=== PATIENT | male | born 1985 | race Caucasian/White ===

== ENCOUNTER → 2020-08-24 18:11 | Outpatient (CLI) | payer BC, SELFPAY | PROVIDERS: PCP Family Medicine; Referring Provider Registered Nurse; Visit Provider Registered Nurse | DX: Z03.818 Encounter for observation for suspected exposure to other biological agents ruled out (principal); R09.81 Nasal congestion | CPT/HCPCS: 87635; C9803; U0003 ==

== ENCOUNTER 2020-09-30 09:29 | Observation (INO) | payer BC, SELFPAY ==
[2020-09-30] VITALS (10 sets, daily range): BP systolic 136–154; BP diastolic 81–103; PULSE 77–95; RESP 14–20; TEMP 36.6–37.3; O2SAT 96–100; BMI 35.9; BMI 35.5; BMI 35.6
--- NOTE | 2020-09-30 09:38 | EKG12_ITS ---
Test Reason : Blood Pressure : / mmHG Vent. Rate : 090 BPM Atrial Rate : 090 BPM P-R Int : 166 ms QRS Dur : 098 ms QT Int : 366 ms P-R-T Axes : 048 001 -04 degrees QTc Int : 447 ms Normal sinus rhythm Moderate voltage criteria for LVH, may be normal variant Nonspecific T wave abnormality Borderline ECG Confirmed by SHARON MARIE, VINCE ([id number]), non linear editor NORA LARSEN ([id number]) on 10/04/2020 9:47:32 AM Referred By: DORIS Confirmed By:VINCE HERRERA MD
--- NOTE | 2020-09-30 09:38 | RAD_ITS ---
STUDY: X-RAY CHEST REASON FOR EXAM: Male, 35 years old. CHEST PAIN, SOME SOB ON EXERTION TECHNIQUE: Single AP portable view of the chest. COMPARISON: None. FINDINGS: EKG electrodes are seen. The lungs are clear and expanded. There is no demonstrated pleural abnormality. Normal size heart. Normal mediastinum and la nena. Normal visualized pulmonary arteries. Normal visualized aortic arch and descending thoracic aorta. Normal visualized thoracic spine. Normal visualized ribs, clavicles, and shoulders. There is no demonstrated abnormality of the visualized soft tissue structures of the upper abdomen. RAD/Chest 1 View (Portable) IMPRESSION: Normal x-ray examination of the chest. Electronically Signed: Rd Baker, at 10:33 EST , Service support ,
--- NOTE | 2020-09-30 09:39 | ED.DCSUM_ITS ---
History of Present Illness Chief Complaint: Chest Pain Informant: Patient Narrative: 35-year-old male with no significant past medical history presents with concern for chest pain. States is been present over the past 3 weeks. States it is been intermittent in nature. Describes it as sharp and retrosternal. Not elicited by exertion. Patient states that however he was at work today when he lifted a box and became very dizzy he developed chest pain and had shortness of breath. Denies any nausea or diaphoresis. Patient did just recently fly to [place] 11 days ago. Denies any lower extremity pain or edema. Denies any history of DVT or pulmonary embolism. Is not a current smoker. States that he has had elevated cholesterol and has been working on weight loss rather than medication. Denies any sick contacts. Denies any fever, chills, cough. Past Medical History - Allergies and Home Meds Allergies/Adverse Reactions: Allergies No Known Allergies Allergy (Verified 09/30/20 09:58) Primary Care Physician: Ravi Stout MD [Primary Care Provider] - Prior records reviewed: Yes Past Medical History: None Surgical History: - - gynecomastia surgery Lives: Spouse/ Significant Other Smoking Status: Never smoker Alcohol: Occasional Drugs: None Review of Systems General: Denies: Chills, Fever, Sweats Eyes: Denies: Visual changes - bilaterally, Diplopia ENT: Denies: Rhinorrhea, Sore throat Cardiovascular: Reports: Chest pain. Denies: Palpitations Respiratory: Reports: Dyspnea. Denies: Cough, Dyspnea on exertion Gastrointestinal: Denies: Abdominal pain, Nausea, Vomiting, Diarrhea, Melena, Hematochezia Genitourinary: Denies: Dysuria, Hematuria, Frequency Musculoskeletal: Denies: Back pain, Extremity Pain Skin: Denies: Rash, Wounds Neurological: Denies: Headache, Weakness, Numbness Physical Exam Vital Signs/Narrative: Vital Signs Temp Pulse Resp BP Pulse Ox 09/30/20 09:31 98.2 F 89 20 H 150/101 H 98 Inital Vital Signs reviewed: Yes General: Well nourished, Well developed, No Acute Distress Head: Normocephalic, Atraumatic Eyes: Perrl, EOMI ENT: Moist mucous membranes, No rhinorrhea Neck: Supple, Nontender Cardiovascular: Regular rate, Regular rhythm, No murmurs Respiratory: No distress, CTA bilaterally, Chest nontender Abdomen: Soft, Nontender, Nondistended, Normal bowel sounds Back: Nontender, Normal Inspection Extremities: Nontender, No edema. Negative for: Calf Tenderness Skin: Normal color, No rash Neurological: Alert, Oriented x3, Cranial nerves II-XII grossly intact, Normal Strength, Normal Sensation Psychological: Normal affect, Normal Mood Diagnostic/Tx/Re-eval Chest X-Ray - ED: 1 View, Read by ED Physician, Read by Radiologist Clinical Impression(s) from Imaging Studies Chest X-Ray 09/30/20 09:38 IMPRESSION: Normal x-ray examination of the chest. Electronically Signed: Rd Baker, at 10:33 EST , Service support , Laboratory Data 09/30/20 09/30/20 09/30/20 09:48 09:48 09:48 WBC 4.9 RBC 4.77 Hgb 15.3 Hct 43.4 MCV 91.0 MCH 32.1 H MCHC 35.3 RDW Std Deviation 41.3 RDW Coeff of Monalisa 12.4 Plt Count 186 MPV 10.2 Immature Gran % (Auto) 0.200 Neut % (Auto) 54.2 Lymph % (Auto) 31.8 Mcmullen % (Auto) 10.8 H Eos % (Auto) 2.0 Baso % (Auto) 1.0 Absolute Neuts (auto) 2.7 Absolute Lymphs (auto) 1.56 Nucleated RBC % 0 D-Dimer Quant (PE/DVT) 0.29 Sodium 138 Potassium 3.8 Chloride 108 H Carbon Dioxide 24.0 Anion Gap 6 BUN 11 Creatinine 1.04 Estim Creat Clear Calc 109.85 Est GFR (MDRD) Af Amer 105 Est GFR (MDRD) Non-Af 87 BUN/Creatinine Ratio 10.6 Glucose 90 Calcium 8.5 Troponin I < 0.015 - Rhythm Strip Rhythm Strip: Sinus Rhythm Rate: 90 Ectopy: None - EKG Initial EKG Interpretation: Sinus Rhythm - Sinus rhythm at 90 bpm. NM interval of 166 ms. QTC of 447 ms. T wave inversion in lead III and aVF. No evidence of ST elevation. LVH. - Medical Decision Making Appears well and nontoxic. Hypertensive upon arrival. D-dimer negative. Troponin negative. EKG shows T wave inversions in inferior leads without comparison. Spoke with box spring frame builder on-call, Dr. Mirza, who suggested admission given the patient's significantly elevated lipids as an outpatient. Patient will receive stress testing during his hospital stay. Patient received aspirin. Patient admitted in stable condition after discussion with hospitalist. 1. Chest pain 2. Hyperlipidemia ED Disposition - Plan for ED Patient: Referrals: Ravi Stout MD [Primary Care Provider] -
[2020-09-30 09:58] LABS: Absolute Lymphocyte Count 1.56 X10^3/uL (0.83-4.51); Absolute Neutrophil Count 2.7 X10^3/uL (2.0-7.7); Basophil# 0.05 X10^3/uL; Hematocrit 43.4 % (40-54); Hemoglobin 15.3 g/dL (13.0-16.5); Lymphocyte # 1.56 X10^3/ul (4.0); Lymphocyte % 31.8 % (19-41); Mean Corp Hgb Conc 35.3 g/dL (32-36); Mean Corpuscular Hgb 32.1 pg (27.0-32.0); Mean Platelet Vol. 10.2 fl (6.2-12.0); Monocyte# 0.53 X10^3/uL; Monocyte% 10.8 % (0-10); NRBC Flagged by Analyzer 0 % (0-5); Neutrophil # 2.65 X10^3/uL (2.7-7.7); Neutrophil % 54.2 % (47-70); Platelet Count 186 K/mm3 (150-450); RBC Distribution Width CV 12.4 % (11.6-14.6); RBC Distribution Width SD 41.3 fl (35.1-43.9); Red Blood Count 4.77 M/mm3 (4.6-6.2); White Blood Count 4.9 K/mm3 (4.4-11.0)
[2020-09-30 10:12] LABS: D-Dimer Quantitative (DVT/PE) 0.29 FEU/ug/m (0.27-0.49)
[2020-09-30 10:15] LABS: Anion Gap 6 (5-15); BUN 11 mg/dL (7-18); BUN/Creat Ratio 10.6 RATIO (10-20); Calcium,Total 8.5 mg/dL (8.5-10.1); Chloride 108 mmol/L (98-107); Creatinine, Serum 1.04 mg/dL (0.70-1.30); EST Glomerular Filtration Rate 87 mL/min (>60); Est Glom Filt Rate - Afr Amer 105 mL/min (>60); Estimated Creatinine Clearance 109.85 ml/min; Glucose 90 mg/dL (74-106); Potassium 3.8 mmol/L (3.5-5.1); Sodium Level 138 mmol/L (136-145)
[2020-09-30] MEDS: Aspirin 325 MG Tablet PO (10:31)
--- NOTE | 2020-09-30 11:10 | EKG12_ITS ---
Test Reason : CP ADMIT Blood Pressure : / mmHG Vent. Rate : 075 BPM Atrial Rate : 075 BPM P-R Int : 170 ms QRS Dur : 098 ms QT Int : 384 ms P-R-T Axes : 021 -02 -11 degrees QTc Int : 428 ms Normal sinus rhythm Normal ECG Confirmed by SHARON MARIE, VINCE ([id number]), distribution associate NORA LARSEN ([id number]) on 10/04/2020 10:03:00 AM Referred By: BLADE Confirmed By:VINCE HERRERA MD
--- NOTE | 2020-09-30 11:26 | PCM.CONS.C ---
Problem List (1) Chest pain Status: Acute Reason for Consult Date of Consultation: 09/30/20 History of Present Illness: The patient is a 35 year old M has been having left-sided pressure for 3 weeks. It could last for hours with or without exertion. It usually did not involve dizziness or shortness of breath. However, he has been feeling more tired than usual. In the good day, patient can do anything he wants to do with no difficulty. He is still working full-time ambulating with no difficulty. Today at work, patient was lifting something and developed similar chest tightness with dizziness this time. He was concerned and was seen emergency room. Is known to have hyperlipidemia on diet control. He is a non-smoker, no use of recreational drug. He drinks occasionally. There has been no family history of early myocardial infarct. First sets of EKG showed normal sinus rhythm with nonspecific ST-T wave changes. First set of enzymes was normal [] Past Medical History Allergies/Adverse Reactions: Allergies No Known Allergies Allergy (Verified 09/30/20 09:58) Home Medications: Ambulatory Orders Medication Instructions Recorded Citalopram [Celexa] 20 mg PO BID 09/30/20 Surgical History: no surgical history, - - gynecomastia surgery Psychiatric History: No pertinent psych hx Lives: Spouse/ Significant Other Smoking Status: Never smoker Tobacco Use: Non-smoker Alcohol: Occasional Drugs: None Review of Systems - Review of Systems General: Denies: Fever, Night Sweats, Fatigue Cardiovascular: Reports: Chest Discomfort Respiratory: Denies: Cough, Sputum Production, Hemoptysis Gastrointestinal: Denies: Hematemesis, Hematochezia, Melena Genitourinary: Denies: Dysuria, Hematuria Muscoloskeletal: Denies: Muscle Weakness, Joint Swelling, Neck Pain, Back Pain Skin: Denies: Rash Neurological: Reports: Dizziness Psychiatric: Denies: Anxiety, Depression Objective: Vital Signs Temp Pulse Resp BP Pulse Ox 98.2 F 80 20 H 154/103 H 96 09/30/20 10:49 09/30/20 10:49 09/30/20 10:49 09/30/20 10:49 09/30/20 10:49 Oxygen Delivery Method Room Air Weight: 264 lb 12.403 oz Body Mass Index (BMI) 35.9 General: Awake, Alert, Oriented x 3 HEENT: PERRL, EOMI, Sclera Non Icteric Neck: Supple Lungs: Clear to auscultation Cardiovascular: Regular Rhythm, Normal S1, Normal S2, No Murmurs, No Rubs, No Gallops Vascular: No Carotid Bruits, Normal Femoral Pulses, Normal Radial Pulses, Normal Dorsalis Pedal Pulse, Normal Posterior Tibial Pulses Abdomen: Bowel Sounds Present, Soft, Non Tender, No HSM, No Organomegaly Extremities: No Cyanosis, No Clubbing, No edema Neurological: No Focal Motor or Sensory Deficit Psych/Mental Status: Appropriate, Normal Affect 09/30/20 09:48: WBC 4.9, RBC 4.77, Hgb 15.3, Hct 43.4, MCV 91.0, MCH 32.1 H, MCHC 35.3, Plt Count 186, MPV 10.2, Immature Gran % (Auto) 0.200, Neut % (Auto) 54.2, Lymph % (Auto) 31.8, Preble % (Auto) 10.8 H, Eos % (Auto) 2.0, Baso % (Auto) 1.0, Absolute Neuts (auto) 2.7, Nucleated RBC % 0 09/30/20 09:48: D-Dimer Quant (PE/DVT) 0.29 09/30/20 09:48: Sodium 138, Potassium 3.8, Chloride 108 H, Carbon Dioxide 24.0, Anion Gap 6, BUN 11, Creatinine 1.04, Est GFR (MDRD) Af Amer 105, Est GFR (MDRD) Non-Af 87, BUN/Creatinine Ratio 10.6, Glucose 90, Calcium 8.5, Troponin I < 0.015 Rhythm: EKG: ECHO: Stress Test: Cardiac Cath: PCI: CT Surgery: Holter monitor: EPS: PPM: CXR: Chest CT Scan: Assessment/Plan Mostly atypical chest pain for 3 weeks. First sets of EKG was basically normal with nonspecific ST-T wave changes. First set of enzymes was normal. Patient has had history of hyperlipidemia. I will proceed with nuclear stress test tomorrow.
--- NOTE | 2020-09-30 11:35 | HP.PCM_ITS ---
Problem List (1) Misophonia Status: Chronic (2) Hyperlipidemia Status: Chronic (3) Chest pain Status: Acute History of Present Illness Date of Admission: 09/30/20 Chief Complaint: Chest pain. The patient is a 35 year old M with past medical history as mentioned above presented to the emergency room because of chest pain. His symptoms started around 3 weeks ago with chest pain, retrosternal, sometimes goes to the left side, pressure-like pain, sometimes sharp, radiates to the left neck and left shoulder, associated with shortness of breath and dizziness and without aggravating or relieving factors. He reported no factors that bring the pain on like activity or rest. He mentioned that the pain has been almost constant through the 3 weeks but today at work, it got worse, was dizzy, sweaty and short of breath and he decided to come to the ER. In the emergency department, blood pressure was slight elevated, other vitals were stable. Routine blood work was unremarkable. EKG revealed normal sinus rhythm without evidence of acute ischemic changes. Troponin was negative. D-dimer was normal. Chest x-ray showed no acute findings. He is being admitted for chest pain for evaluation. Past Medical History Past Medical History (Chronic Problems): Chronic Problems Misophonia (Chronic) Hyperlipidemia (Chronic) Allergies No Known Allergies Allergy (Verified 09/30/20 09:58) Home Medications: Ambulatory Orders Medication Instructions Recorded Citalopram [Celexa] 20 mg PO BID 09/30/20 Surgical History: no surgical history, - - gynecomastia surgery Psychiatric History: No pertinent psych hx Lives: Spouse/ Significant Other Smoking Status: Never smoker Tobacco Use: Non-smoker Alcohol: Occasional Drugs: None - *Family History Maternal History Items: No pertinent history, - - No first-degree family history of premature CAD, hypertension or diabetes. Paternal History Items: No pertinent history Review of Systems Constitutional: Denies: Anorexia, Chills, Fever, Weakness Eyes: Denies: Blurred vision, Double vision, Drainage, Redness HEENT: Denies: Difficulty Hearing, Ear Pain, Eye Pain, Nasal Congestion, Sore Throat Cardiovascular: Reports: Chest Pain, Chest Pressure, Light Headedness. Denies: Edema, Heaviness, Palpitations, Paroxysmal Noc. Dyspnea, Syncope Respiratory: Reports: Shortness of Breath. Denies: Cough, Hemoptysis, Pleuritic Pain, Sputum production, Wheezing Gastrointestinal: Denies: Abdominal Pain, Constipation, Nausea, Vomiting Genitourinary: Denies: Dysuria, Frequency, Hematuria Musculoskeletal: Denies: Arm Pain, Back Pain, Foot Pain Skin: Denies: Dryness, Rash Neurological: Denies: Balance problems, Blurred vision, Double vision, Change in Speech, Slurred speech, Confusion, Headaches, Incoordination Psychiatric: Denies: Anxiety, Depression Endocrine: Denies: Change in Body Habitus, Polydipsia, Polyuria VTE Information - Inpt Only VTE Present on Admission: No VTE Mechan Device Prophylaxis: None VTE Pharm Prophylaxis ordered?: No Patient Problems: Active and Suspected Problems Chest pain (Acute) - Physical Exam Vitals/I&O's: Vital Signs Temp Pulse Resp BP Pulse Ox 98.2 F 80 20 H 154/103 H 96 09/30/20 10:49 09/30/20 10:49 09/30/20 10:49 09/30/20 10:49 09/30/20 10:49 Oxygen Delivery Method Room Air Weight: 264 lb 12.403 oz Body Mass Index (BMI) 35.9 General: Alert, Oriented x3, Cooperative, No apparent distress HEENT: Atraumatic, PERRLA, EOMI, Normocephalic Oral: Moist Mucosa, No Gingival or Mucosal Lesions/ Ulcerations Neck: Supple, No JVD, Negative Carotid Bruits, Trachea Midline, Thyroid Normal Size and Texture Lungs: Clear to auscultation, Normal air movement, No rhonchi, No wheeze, No rales Cardiovascular: Regular rate, Regular Rhythm, Normal S1, Normal S2, PMI Normal Abdomen: Bowel Sounds Present, Soft, Non Tender, Non-Distended, No Hepato- splenomegaly, Obese Extremities: No clubbing, No cyanosis, No edema Skin: No rashes, No breakdown Lymphatic: No Cervical, Supraclavicular, or Inguinal Adenopathy Neurological: Cranial nerves II-XII grossly intact, Motor Exam 5/5 strength throughout Psych/Mental Status: Normal Affect, Appropriate, Alert and oriented to time, place, person, mood and affect Laboratory Results 09/30/20 09:48: WBC 4.9, RBC 4.77, Hgb 15.3, Hct 43.4, MCV 91.0, MCH 32.1 H, MCHC 35.3, RDW Std Deviation 41.3, RDW Coeff of Monalisa 12.4, Plt Count 186, MPV 10.2, Immature Gran % (Auto) 0.200, Neut % (Auto) 54.2, Lymph % (Auto) 31.8, Robeson % (Auto) 10.8 H, Eos % (Auto) 2.0, Baso % (Auto) 1.0, Absolute Neuts (auto) 2.7, Absolute Lymphs (auto) 1.56, Nucleated RBC % 0 09/30/20 09:48: D-Dimer Quant (PE/DVT) 0.29 09/30/20 09:48: Sodium 138, Potassium 3.8, Chloride 108 H, Carbon Dioxide 24.0, Anion Gap 6, BUN 11, Creatinine 1.04, Estim Creat Clear Calc 109.85, Est GFR (MDRD) Af Amer 105, Est GFR (MDRD) Non-Af 87, BUN/Creatinine Ratio 10.6, Glucose 90, Calcium 8.5, Troponin I < 0.015 Clinical Impression(s) from Imaging Studies Chest X-Ray 09/30/20 09:38 IMPRESSION: Normal x-ray examination of the chest. Electronically Signed: Rd Baker, at 10:33 EST , Service support , Current Medications Acetaminophen (Acetaminophen 325 Mg Tablet) 650 mg PO Q6H PRN PRN PRN Reason: Pain Score 1-10/Temp > 100.7 F Citalopram Hydrobromide (Citalopram 20 Mg Tablet) 20 mg PO BID DAVID Nitroglycerin (Nitroglycerin (Inpatient Use) 0.4 Mg Tab.Subl) 0.4 mg SUBLINGUAL Q5M PRN PRN Reason: CHEST PAIN Ondansetron HCl (Ondansetron 4 Mg/2 Ml Vial) 4 mg IV Q8H PRN PRN PRN Reason: NAUSEA/VOMITING Senna/Docusate Sodium (Senna/Docusate Sodium 1 Tablet) 2 tablet PO BID PRN PRN PRN Reason: Constipation Sodium Chloride (0.9% Saline Lock 10 Ml Syringe) 10 - 40 ml IV UD PRN PRN Reason: SALINE FLUSH Zolpidem Tartrate (Zolpidem Tartrate 5 Mg Tablet) 5 mg PO QHS PRN PRN PRN Reason: INSOMNIA Assessment/Plan All Active Problems Chest pain (Acute) This is a 35 years old male patient presented to the emergency room because of chest pain and he is being admitted for evaluation. #1 chest pain: Atypical, has been going on for 3 weeks. Risk factors are obesity and history of hyperlipidemia. No family history of premature CAD. No personal history of diabetes or hypertension. He is non-smoker. EKG revealed no acute ischemic changes. Troponin was negative. Chest x-ray without acute findings. Plan: Admit to PCU for observation, cardiac monitoring, serial cardiac enzymes, Tylenol as needed, Zofran as needed, sublingual nitro as needed, lipid profile, monitor blood pressure, nuclear stress test tomorrow morning if cardiac enzymes are negative. #2 hyperlipidemia: Currently, he is not on medications. Will check lipid profile. #3 Misophonia: Stable, continue Celexa. #4 DVT prophylaxis: Low risk patient, no prophylaxis indicated. This note was generated with [employer] dictation software. It may contain incorrect words, spelling, and punctuation that were not noted in checking the note before signing. OBSV E&M: [id number] Initial observation care L2
[2020-09-30 13:11] LABS: Cholesterol 423 mg/dL (200); High Density Lipoprotein 51 mg/dL; Triglycerides 766 mg/dL
--- NOTE | 2020-09-30 19:00 | PCS.PANDOC ---
PANDEMIC DOCUMENTATION INITIATED: Date: 09/30/20 Time: 11:09
[2020-09-30] MEDS: Citalopram 20 MG Tablet PO (19:55)
[2020-10-01] VITALS (7 sets, daily range): BP systolic 139–153; BP diastolic 83–90; PULSE 65–91; RESP 16–17; TEMP 36.3–36.9; O2SAT 99
[2020-10-01] MEDS: Citalopram 20 MG Tablet PO (10:27)
--- NOTE | 2020-10-01 11:40 | STRESSREP_ITS ---
Stress Test Report Date: 10-01-2020 Procedure: Exercise tolerance test/imaging study Indications: Pain Consent: Per the patient Procedure: The patient exercised on a Silvano protocol for 8 minutes and 30 seconds completing Stage II and 2 minutes and 30 seconds of Stage III achieving a peak heart rate of 169 bpm (90% predicted maximal heart rate) with a peak blood pressure 172/80 mmHg and a peak MET capacity of 9 METs. The baseline ECG demonstrated normal sinus rhythm. The peak exercise ECG demonstrated no obvious ECG changes. There were no cardiac dysrhythmias pretest, during exercise, or recovery. The functional capacity was considered good. There was noted to have chest discomfort pretest, during exercise, and recovery. The examination was discontinued secondary to dyspnea. Impression: 1. Technically adequate (percent predicted maximal heart rate greater than 85%) exercise tolerance test 2. Peak exercise ECG with no obvious ECG changes 3. There were no cardiac dysrhythmias pretest, during exercise, or recovery 4. Nuclear images pending Myocardial perfusion imaging study: Technique: The patient was injected with 14.8 mCi of technetium 99m Cardiolite and subsequently rest SPECT Cardiolite nuclear imaging was obtained in the horizontal long, vertical long, and short axis views. The patient exercised on a Silvano protocol for 8 minutes and 30 seconds completing Stage II and 2 minutes and 30 seconds of Stage III achieving a peak heart rate of 169 bpm (90% predicted maximal heart rate) with a peak blood pressure 172/80 mmHg and a peak MET capacity of 9 METs. The patient was injected with a 44.3 mCi of technetium 99m Cardiolite and subsequently stress SPECT Cardiolite nuclear imaging was obtained in the horizontal long, vertical long, and short axis views. A gated Cardiolite study at peak stress was obtained. Interpretation: Rest and stress SPECT Cardiolite nuclear imaging status post realignment, normalization, and attenuation correction, demonstrates the appearance of relative uniform tracer uptake and myocardial perfusion appearing within normal limits. There is end systolic thickening and brightening. The gated Cardiolite study demonstrates myocardial thickening and inward wall motion. The reported LVEF is 55%. Impression: 1. Rest and stress SPECT Cardiolite nuclear imaging demonstrate relative uniform tracer uptake and myocardial perfusion appearing within normal limits. 2. The gated Cardiolite study reports an LVEF of 55%. This note was generated with [employer] software. It may contain incorrect words, spelling, and punctuation that were not noted in checking the note before signing.
--- NOTE | 2020-10-01 11:50 | DCINST_ITS ---
- Discharge Diagnoses Current Active Problems: Current Active and Chronic Problems Misophonia (Chronic) Hyperlipidemia (Chronic) Chest pain (Acute) You will use the following diet at home:: Regular Your food should be the consistency of: Regular Discharge Activity: Return to Normal Activity Weight Bearing Status: Full weight bearing Call your doctor if you observe: Fever of 101 or Higher, Shortness of breath, Dizziness, Fainting spells, Chest pain, Increased palpitations (irregular heartbeat), Uncontrolled pain Instructions: Taking Your Blood Pressure Allergies/Adverse Reactions: Allergies No Known Allergies Allergy (Verified 09/30/20 09:58) Medications to take at Discharge Citalopram [Celexa] 20 mg PO BID 09/30/20 Atorvastatin Calcium [Lipitor] 20 mg PO QHS #30 tab 10/01/20 Pantoprazole Sodium [Protonix] 40 mg PO DAILY #30 tab 10/01/20 The following prescriptions were given: Atorvastatin Calcium [Lipitor] 20 mg PO QHS #30 tab Prescription Printed Pantoprazole Sodium [Protonix] 40 mg PO DAILY #30 tab Prescription Printed Primary Care Physician: Ravi Stout MD [Primary Care Provider] - Please follow up with your Primary Care Physician in: 1-2 weeks. Test Results: Test results from this visit will be discussed in further detail at your follow- up appointment, if applicable.
--- NOTE | 2020-10-01 12:09 | DS.PCM_ITS ---
Discharge Date and Diagnosis - Problem List Patient Problems: Active and Suspected Problems Chest pain (Acute) Date of Admission: 09/30/20 Date of Discharge: 10/01/20 - Primary Discharge Diagnosis Acute Problems: Active Problems #1 chest pain, ACS ruled out, could be due to GERD. #2 hyperlipidemia. - Secondary Discharge Diagnosis Chronic Problems: Chronic Problems Misophonia (Chronic) Hyperlipidemia (Chronic) Hospital Course and Treatment Imaging Results: 10/01/20 05:55 Nuclear Stress Test - Treadmil [NM] AM (NON MEDS) Clinical Impression(s) from Imaging Studies Chest X-Ray 09/30/20 09:38 IMPRESSION: Normal x-ray examination of the chest. Electronically Signed: Rd Baker, at 10:33 EST , Service support , . Nuclear stress test results: Interpretation: Rest and stress SPECT Cardiolite nuclear imaging status post realignment, normalization, and attenuation correction, demonstrates the appearance of relative uniform tracer uptake and myocardial perfusion appearing within normal limits. There is end systolic thickening and brightening. The gated Cardiolite study demonstrates myocardial thickening and inward wall motion. The reported LVEF is 55%. Impression: 1. Rest and stress SPECT Cardiolite nuclear imaging demonstrate relative uniform tracer uptake and myocardial perfusion appearing within normal limits. 2. The gated Cardiolite study reports an LVEF of 55%. Operations: None Procedures: EKG, Stress test Summary of Care Provided: Patient seen and examined on the day of discharge and appeared to be stable to be discharged home. He mentioned that his pain is getting better but still there. No other complaints. He mentioned that he has been having issues with reflux disease. His vital signs were stable. The patient is a 35 year old M admitted because of atypical chest pain for evaluation. His initial EKG showed normal sinus rhythm without evidence of acute segment changes. Troponin was negative x3. Chest x-ray showed no acute findings. Routine blood work was unremarkable. D-dimer was normal. Lipid profile done and revealed triglyceride of 766, total cholesterol of 423, HDL cholesterol of 51. Patient stated that he was diagnosed with hyperlipidemia 1 year ago and he has been trying diet controlled but apparently, it is not effective. Patient was started on Lipitor. During this hospital stay, blood pressure was on the slightly higher side, systolic anywhere between 130s to 150s. ACS ruled out. Patient discharged home in a stable medical condition, discharged on Lipitor 20 mg p.o. nightly, started on Protonix daily, instructed to monitor blood pressure and to follow-up with PCP in 1 week. No antihypertensive medication started at this time. Patient Problems: Active and Suspected Problems Chest pain (Acute) - Physical Exam Vitals/I&O's: Vital Signs Temp Pulse Resp BP Pulse Ox 97.7 F L 91 16 144/86 H 99 10/01/20 10:28 10/01/20 10:28 10/01/20 10:28 10/01/20 10:28 10/01/20 10:28 Oxygen Delivery Method Room Air Weight: 255 lb Body Mass Index (BMI) 35.5 Intake and Output for Last 24 Hours 09/29/20 09/30/20 10/01/20 23:59 23:59 23:59 Intake Total 240 / 240 0 / 0 Balance 240 / 240 0 / 0 General: Alert, Oriented x3, Cooperative, No apparent distress HEENT: Atraumatic, PERRLA, EOMI, Normocephalic Oral: Moist Mucosa, No Gingival or Mucosal Lesions/ Ulcerations Neck: Supple, No JVD, Negative Carotid Bruits, Trachea Midline, Thyroid Normal Size and Texture Lungs: Clear to auscultation, Normal air movement, No rhonchi, No wheeze, No rales Cardiovascular: Regular rate, Regular Rhythm, Normal S1, Normal S2, PMI Normal Abdomen: Bowel Sounds Present, Soft, Non Tender, Non-Distended, No Hepato- splenomegaly Extremities: No clubbing, No cyanosis, No edema Skin: No rashes, No breakdown Lymphatic: No Cervical, Supraclavicular, or Inguinal Adenopathy Neurological: Cranial nerves II-XII grossly intact, Neuro grossly intact Psych/Mental Status: Normal Affect, Appropriate Laboratory Results 09/30/20 11:40: Troponin I < 0.015, Triglycerides 766 H, Cholesterol 423 H, LDL Cholesterol TNP, VLDL Cholesterol TNP, HDL Cholesterol 51 09/30/20 15:51: Troponin I < 0.015 Current Medications Acetaminophen (Acetaminophen 325 Mg Tablet) 650 mg PO Q6H PRN PRN PRN Reason: Pain Score 1-10/Temp > 100.7 F Citalopram Hydrobromide (Citalopram 20 Mg Tablet) 20 mg PO BID DAVID Last Admin: 10/01/20 10:27 Dose: 20 mg Documented by: Nitroglycerin (Nitroglycerin (Inpatient Use) 0.4 Mg Tab.Subl) 0.4 mg SUBLINGUAL Q5M PRN PRN Reason: CHEST PAIN Ondansetron HCl (Ondansetron 4 Mg/2 Ml Vial) 4 mg IV Q8H PRN PRN PRN Reason: NAUSEA/VOMITING Senna/Docusate Sodium (Senna/Docusate Sodium 1 Tablet) 2 tablet PO BID PRN PRN PRN Reason: Constipation Sodium Chloride (0.9% Saline Lock 10 Ml Syringe) 10 - 40 ml IV UD PRN PRN Reason: SALINE FLUSH Zolpidem Tartrate (Zolpidem Tartrate 5 Mg Tablet) 5 mg PO QHS PRN PRN PRN Reason: INSOMNIA Discharge Activity: Return to Normal Activity Weight Bearing Status: Full weight bearing Call your doctor if you observe: Fever of 101 or Higher, Shortness of breath, Dizziness, Fainting spells, Chest pain, Increased palpitations (irregular heartbeat), Uncontrolled pain Home Medications: Medications to take at Discharge Citalopram [Celexa] 20 mg PO BID 09/30/20 Atorvastatin Calcium [Lipitor] 20 mg PO QHS #30 tab 10/01/20 Pantoprazole Sodium [Protonix] 40 mg PO DAILY #30 tab 10/01/20 Following Prescriptions Were Given to Patient: Atorvastatin Calcium [Lipitor] 20 mg PO QHS #30 tab Prescription Printed Pantoprazole Sodium [Protonix] 40 mg PO DAILY #30 tab Prescription Printed Primary Care Physician: Ravi Stout MD [Primary Care Provider] - Please follow up with your Primary Care Physician in: 1-2 weeks. Please Follow Up With: Ravi Stout MD Patient Instructions: Taking Your Blood Pressure Disposition: Home Minutes spent on discharge:: 25 Patient Condition:: Stable Medical Necessity - Tobacco Use Smoking Status: Never smoker Tobacco Use: Non-smoker Meaningful Use Info Meaningful Use Diagnoses (Choose all that apply): None applicable OBSV E&M: 54585 Observation care discharge
[2020-10-01] MEDS: Pantoprazole Sodium 40 MG Tablet PO (13:49)
== END 2020-10-01 11:51 | disposition home or self-care (01) ==
LOC: ED 10:42 → PCU 10:57
PROVIDERS: Admitting Provider Hospitalist; Emergency Provider Emergency Medicine; PCP Family Medicine; Visit Provider Hospitalist
DX: R07.89 Other chest pain (principal); R06.02 Shortness of breath; R42 Dizziness and giddiness; Z79.899 Other long term (current) drug therapy; E78.5 Hyperlipidemia, unspecified
CPT/HCPCS: 36415; 71045; 78452; 80048; 80061; 84484; 85025; 85379; 93005; 93017; 99218; 99251; 99285; A9500; A4216; G0378; G0463